=== PATIENT | female | born 1965 | race Caucasian/White ===

== ENCOUNTER 2023-02-27 20:26 | Emergency (ER) | payer MEDICAID ==
[~2023-02-27] VITALS: Ht 157.5 cm; Wt 61.2 kg
[2023-02-27 20:34] VITALS: BP_SYST 157; PULSE 76; RESP 18; TEMP 98.3; O2SAT 98
[2023-02-27] MEDS ORDERED: AMLO2.5T2 PO (20:42)
[2023-02-27] MEDS ORDERED: MECLIZINE HCL 25 MG TABLET (ANITVERT) PO ONE (21:45)
[2023-02-27] MEDS ORDERED: ONDANSETRON 4 MG ODT TAB PO ONE (21:45)
[2023-02-27 22:01] LABS: BASOPHILS # (AUTO) 0.1 K/uL (0.0-0.2); EOSINOPHILS # (AUTO) 0.4 K/uL (0.0-0.4); HEMATOCRIT 39.5 % (36-48); HEMOGLOBIN 12.9 g/dL (12.0-16.0); LYMPHOCYTES # (AUTO) 2.4 K/uL (1.0-5.5); LYMPHOCYTES % (AUTO) 43.8 % (20.5-51.5); MEAN CORPUSCULAR HEMOGLOBIN 28 pg (27-31); MEAN CORPUSCULAR HGB CONC 33 % (32-36); MEAN CORPUSCULAR VOLUME 86 fL (79.0-98.0); MONOCYTES # (AUTO) 0.3 K/uL (0.0-1.0); MONOCYTES % (AUTO) 5.3 % (1.7-9.3); NEUTROPHILS # (AUTO) 2.4 K/uL (1.8-7.7); NEUTROPHILS % (AUTO) 42.9 % (40.0-70.0); PLATELET COUNT (AUTO) 292 K/uL (130-430); RED CELL DISTRIBUTION WIDTH 14.4 % (9.0-15.0); WHITE BLOOD COUNT (AUTO) 5.5 K/uL (4.8-10.8)
[2023-02-27 22:12] LABS: ANION GAP 2 (5-15); CALCIUM 9.7 mg/dL (8.4-11.0); CARBON DIOXIDE 34 mmol/L (23-29); CHLORIDE 102 mmol/L (98-107); CREATININE 0.41 mg/dL (0.55-1.30); GFR AFRICAN AMERICAN 206 mL/min (>90); GFR NON AFRICAN-AMERICAN 170 mL/min (>90); GLUCOSE 112 mg/dL (74-106); SODIUM SERUM 138 mmol/L (136-145); UREA NITROGEN, BLOOD 15 mg/dL (8-21)
[2023-02-27 22:27] LABS: ALANINE AMINOTRANSFERASE 23 U/L (12-78); ALBUMIN 3.9 g/dL (3.4-4.8); ASPARTATE AMINOTRANSFERASE 14 U/L (10-37); TOTAL BILIRUBIN 0.3 mg/dL (0.0-1.0); TOTAL PROTEIN, SERUM 7.5 g/dL (6.4-8.3)
[2023-02-28 00:24] LABS: BILIRUBIN,URINE NEGATIVE (NEGATIVE); BLOOD, URINE NEGATIVE (NEGATIVE); CLARITY/URINE CLEAR (CLEAR); COLOR,URINE YELLOW (YELLOW); GLUCOSE,URINE NEGATIVE (NEGATIVE); KETONES,URINE NEGATIVE (NEGATIVE); LEUKOCYTE ESTERASE ,URINE NEGATIVE (NEGATIVE); NITRITE, URINE NEGATIVE (NEGATIVE); PH,URINE 7.5 (5.0-8.0); PROTEIN URINE NEGATIVE (NEGATIVE); UROBILINOGEN,URINE 0.2 (0.2-1.0)
[2023-02-28] MEDS ORDERED: MECL-108 PO (00:37)
[2023-02-28 00:40] VITALS: BP_SYST 143; PULSE 47; RESP 20; TEMP 98.3; O2SAT 98
== END 2023-02-28 00:40 | disposition home or self-care (01) ==
LOC: SED 20:26
DX: H81.10 Benign paroxysmal vertigo, unspecified ear (principal); R07.9 Chest pain, unspecified; R51.9 Headache, unspecified; I10 Essential (primary) hypertension; E78.5 Hyperlipidemia, unspecified; Z79.899 Other long term (current) drug therapy
CPT/HCPCS: 99284; 70450; 80053; 85025; 84484; 36415; 93005; 76376; 81003; J8597; Q0162